=== PATIENT | male | born 1990 | race Caucasian/White ===

== ENCOUNTER 2022-10-30 07:59 | Emergency (ER) | payer BC, SELFPAY ==
[2022-10-30 08:00] VITALS: BP 121/84; PULSE 96; RESP 14; TEMP 36.5; O2SAT 97; BMI 17.6
--- NOTE | 2022-10-30 08:31 | EKG12_ITS ---
Test Reason : CP FOR MONTHS Blood Pressure : / mmHG Vent. Rate : 080 BPM Atrial Rate : 080 BPM P-R Int : 196 ms QRS Dur : 106 ms QT Int : 370 ms P-R-T Axes : 077 125 072 degrees QTc Int : 426 ms Normal sinus rhythm Right axis deviation Incomplete right bundle branch block Anterior infarct , age undetermined Abnormal ECG Confirmed by THAD GRAHAM, BONNIE ([id number]), general expeditor SANTIAGO ABURTO ([id number]) on 11/03/2022 8:17:29 AM Referred By: KAVON Confirmed By:CHRISTIANO ONEIL MD
--- NOTE | 2022-10-30 08:31 | RAD_ITS ---
STUDY: X-RAY CHEST REASON FOR EXAM: Male, 32 years old. Chest pain TECHNIQUE: Single AP portable view of the chest. COMPARISON: None. FINDINGS: EKG electrodes are seen. The lungs are clear and expanded. There is no demonstrated pleural abnormality. Normal size heart. Normal mediastinum and ana. Normal visualized pulmonary arteries. Normal visualized aortic arch and descending thoracic aorta. Normal visualized thoracic spine. Normal visualized ribs, clavicles, and shoulders. There is no demonstrated abnormality of the visualized soft tissue structures of the upper abdomen. RAD/Chest 1 View (Portable) IMPRESSION: Normal x-ray examination of the chest. Electronically Signed: Boni Araiza MD at 9:29 EDT ,
[2022-10-30 08:33] VITALS: BP 110/77; PULSE 72; RESP 19; O2SAT 96; O2SAT 98
[2022-10-30] MEDS: Aspirin 81 MG TAB.CHEW 324 MG PO (08:37)
[2022-10-30 08:43] LABS: Absolute Lymphocyte Count 1.13 X10^3/uL (0.83-4.51); Absolute Neutrophil Count 3.2 X10^3/uL (2.0-7.7); Basophil# 0.04 X10^3/uL; Basophil% 0.8 % (0-1); Eosinophil# 0.13 X10^3/uL; Eosinophils% 2.7 % (0-5); Hematocrit 45.5 % (40-54); Hemoglobin 14.9 g/dL (13.0-16.5); Lymphocyte # 1.13 X10^3/ul (0.83-4.51); Lymphocyte % 23.1 % (19-41); Mean Corp Hgb Conc 32.7 g/dL (32-36); Mean Corpuscular Hgb 30.1 pg (27.0-32.0); Mean Corpuscular Volume 91.9 fL (80-94); Mean Platelet Vol. 9.1 fl (6.2-12.0); Monocyte# 0.34 X10^3/uL; Monocyte% 6.9 % (0-10); NRBC Flagged by Analyzer 0 % (0-5); Neutrophil # 3.22 X10^3/uL (2.7-7.7); Neutrophil % 65.7 % (47-70); Platelet Count 238 K/mm3 (150-450); RBC Distribution Width CV 12.7 % (11.6-14.6); RBC Distribution Width SD 42.4 fl (35.1-43.9); Red Blood Count 4.95 M/mm3 (4.6-6.2); White Blood Count 4.9 K/mm3 (4.4-11.0)
[2022-10-30 09:02] LABS: Anion Gap 6 (5-15); BUN 15 mg/dL (7-18); BUN/Creat Ratio 16.5 RATIO (10-20); Calcium,Total 8.9 mg/dL (8.5-10.1); Chloride 106 mmol/L (98-107); Creatinine, Serum 0.91 mg/dL (0.70-1.30); EST Glomerular Filtration Rate 104 mL/min (>60); Est Glom Filt Rate - Afr Amer 125 mL/min (>60); Estimated Creatinine Clearance 96.71 ml/min; Glucose 94 mg/dL (74-106); Potassium 4.2 mmol/L (3.5-5.1); Sodium Level 139 mmol/L (136-145); Troponin-I HS < 3 pg/mL (3.0-78.0)
--- NOTE | 2022-10-30 10:09 | ED.VIS.CHEST ---
HPI History of Present Illness Chief Complaint: Chest Pain Informant: patient Onset/Context/Timing Onset: Yesterday Activity at onset: gradual Timing: Intermittent and Lasts (Approximately 10 minutes) Quality: Positive for Tightness Location: Left Chest Worsened By: Nothing Relieved By: Nothing Associated Symptoms: Positive for Nausea, Dyspnea, Acid Reflux and Palpitations; Negative for Vomiting, Diaphoresis, Cough, Fever or Lightheadedness Narrative Narrative: Patient presents with chest pain that has been intermittent for months but became worse yesterday. Patient states that it last for approximately 10 minutes when it comes on. Patient states nothing seems to help with the pain. Patient states nothing makes it worse. Patient states it is over the left side of his chest. Patient denies any radiation of the pain. Patient admits to some nausea but denies any vomiting. Patient admits to some shortness of breath. Patient also admits to some palpitations and acid reflux symptoms. Patient is a smoker but denies any other cardiac or PE risk factors. CVD Risk Factors: Positive for Smoking; Negative for Hypertension, Diabetes, Hypercholesterolemia or Family History 1' </=55 PE Risk Factors: Negative for Recent Travel/Surgery, Recent Immobilization, Prior DVT or PE, Cancer or OCP + Smoking + >/=35 PFSH PFSH Medical History no medical history no medical history Allergy/AdvReac Type Severity Reaction Status Date / Time No Known Allergies Allergy Verified 10/30/22 08:01 Surgical History History of renal stent Social History Smoking Status: Current every day smoker tobacco type: cigarettes ROS ROS ED Constitutional Constitutional ED: Denies chills or fever(s) Eyes Eyes: Denies blurry vision or change in vision ENT ENT ED: Reports sore throat; Denies rhinorrhea Cardiovascular Cardiovascular: Reports chest pain and palpitations Respiratory/Chest Respiratory/Chest: Reports dyspnea; Denies cough Gastrointestinal Gastrointestinal: Reports nausea; Denies abdominal pain or vomiting Genitourinary Genitourinary ED: Denies dysuria or hematuria Musculoskeletal Musculoskeletal: Reports back pain; Denies neck pain Integumentary Denies abscess or rash Neurologic Neurologic: Reports headache(s); Denies weakness Allergic/Immunologic Allergic/Immunologic ED: Denies mouth swelling or urticaria EXAM Physical Exam Const Vital Signs: 10/30/22 08:00 10/30/22 08:33 10/30/22 08:33 Temperature 97.7 F L Temperature Source Temporal Pulse Rate 96 72 Respiratory Rate 14 19 H Blood Pressure 121/84 H 110/77 Blood Pressure Mean 96 88 Pulse Ox 97 98 96 Oxygen Delivery Method Room Air Room Air Room Air Positive well nourished and well developed General Appearance ED: well developed and NAD HEENT Reports moist mucous membranes Neck supple and no JVD Resp normal respiratory effort and clear to auscultation bilaterally Cardio regular rate, regular rhythm and no murmurs GI normal to inspection, nondistended, normoactive bowel sounds and non-tender Palpation: soft Extremity normal to inspection General Extremety ED: Negative for edema or tenderness General Extremity: Negative for edema Neuro oriented x3, CN's II-XII intact bilaterally and no sensory deficits noted Sensorium / Orientation: alert Motor Exam: strength 5/5 throughout Psych mental status grossly normal Skin no rashes or lesions noted Heart Score History: Slightly/Non-Suspicious ECG: Normal Age: </= 45 years Risk Factors: 1 or 2 Risk Factors Troponin: </= Normal Limit Score: 1 MDM MDM MDM Narrative Medical decision making narrative: Differential diagnose includes cardiac dysrhythmia, cardiac ischemia, pneumonia, pneumothorax, musculoskeletal pain and anxiety. EKG will be obtained to assess for cardiac dysrhythmia and cardiac ischemia. CBC will be obtained to assess for leukocytosis and anemia. Basic metabolic profile will be obtained to assess for electrolyte abnormality and renal function. High-sensitivity troponin will be obtained to assess for cardiac ischemia. Chest x-ray will be obtained to assess for pneumonia and pneumothorax. Patient has no PE risk factors, is PERC negative, and has a Wells score of 0. Because of this, I do not feel this is from a pulmonary embolism. Lab Data Attestation: I reviewed the patient's lab results. Lab results narrative: CBC was reviewed and was within normal limits. Basic metabolic profile was reviewed and was within normal limits. High-sensitivity troponin was reviewed and was less than 3. Labs: Laboratory Results - last 24 hr 10/30/22 08:37 WBC 4.9 RBC 4.95 Hgb 14.9 Hct 45.5 MCV 91.9 MCH 30.1 MCHC 32.7 RDW Std Deviation 42.4 RDW Coeff of Dana 12.7 Plt Count 238 MPV 9.1 Immature Gran % (Auto) 0.800 Neut % (Auto) 65.7 Lymph % (Auto) 23.1 [place] % (Auto) 6.9 Eos % (Auto) 2.7 Baso % (Auto) 0.8 Absolute Neuts (auto) 3.2 Absolute Lymphs (auto) 1.13 Nucleated RBC % 0 Sodium 139 Potassium 4.2 Chloride 106 Carbon Dioxide 27.0 Anion Gap 6 BUN 15 Creatinine 0.91 Estim Creat Clear Calc 96.71 Est GFR (MDRD) Af Amer 125 Est GFR (MDRD) Non-Af 104 BUN/Creatinine Ratio 16.5 Glucose 94 Calcium 8.9 Troponin I High Sens < 3 L Radiography Chest X-Ray - ED: 1 View, Read by ED Physician, Read by Radiologist and No Acute Disease Diagnostic Testing: Clinical Impression(s) from Imaging Studies Chest X-Ray 10/30/22 08:31 IMPRESSION: Normal x-ray examination of the chest. Electronically Signed: Boni Araiza MD at 9:29 EDT , Portable 1 view chest x-ray was obtained. On my independent interpretation, lung daniels are clear. There is normal cardiac silhouette. Bony thorax is normal. There is no acute process noted. Radiologist also interpreted the x-ray and agrees. EKG Initial EKG: Attestation: I personally reviewed and interpreted this EKG as follows: Interpretation: Sinus Rhythm (80) and No Acute Injury Pattern Comments: EKG was obtained. On my independent interpretation, it showed a normal sinus rhythm with a rate of 80. FL interval, QRS interval, and QTc intervals were all normal. There is right axis deviation at 125. There are no acute ST or T wave changes. Prior EKG tracings: not available for review Prior: No Prior Treatment and Re-Evaluation :: Patient was given aspirin here. Patient was advised of his findings. Patient has a HEART score of 1. Patient was advised that this is low risk for acute cardiac event. Patient was instructed to follow-up with his primary care physician in 5 to 7 days for further evaluation. Patient understood and was agreeable with the plan. All questions were answered. Discharge Plan Triage Chief Complaint: Chest Pain ED Provider: Miguel Santiago Dx/Rx/DC Orders Clinical Impression: Chest pain Instructions: ED Chest Pain, Uncertain Cause Primary Care Provider: Care Physician,No Primary Referrals: Karlene Virk DO [Med Staff - Active Staff] - 5-7 Days Care Physician,No Primary [Primary Care Provider] - Disposition Disposition: Home, Self Care
== END 2022-10-30 10:31 | disposition home or self-care (01) ==
PROVIDERS: Emergency Provider Emergency Medicine; Visit Provider Emergency Medicine
DX: R07.9 Chest pain, unspecified (principal); F17.210 Nicotine dependence, cigarettes, uncomplicated
CPT/HCPCS: 71045; 80048; 84484; 85025; 93005; 99285; A4216

== ENCOUNTER → 2023-10-22 | Outpatient (CLI) | payer BC, SELFPAY ==
[2023-10-22 17:21] LABS: Absolute Lymphocyte Count 1.61 X10^3/uL (0.83-4.51); Basophil# 0.05 X10^3/uL; Eosinophil# 0.16 X10^3/uL; Eosinophils% 3.1 % (0-5); Hematocrit 42.2 % (40-54); Hemoglobin 14.2 g/dL (13.0-16.5); Lymphocyte # 1.61 X10^3/ul (0.83-4.51); Lymphocyte % 30.8 % (19-41); Mean Corp Hgb Conc 33.6 g/dL (32-36); Mean Platelet Vol. 9.4 fl (6.2-12.0); Monocyte# 0.37 X10^3/uL; Monocyte% 7.1 % (0-10); NRBC Flagged by Analyzer 0 % (0-5); Neutrophil # 3.02 X10^3/uL (2.7-7.7); Neutrophil % 57.6 % (47-70); Platelet Count 229 K/mm3 (150-450); RBC Distribution Width CV 12.1 % (11.6-14.6); RBC Distribution Width SD 39.7 fl (35.1-43.9); Red Blood Count 4.74 M/mm3 (4.6-6.2); White Blood Count 5.2 K/mm3 (4.4-11.0)
[2023-10-22 17:54] LABS: ALB/GLOB Ratio 1.4 RATIO (0.9-2.4); AST(SGOT) 23 U/L (15-37); Alanine Aminotransfer ALT/SGPT 23 U/L (16-61); Albumin, Serum 4.3 g/dL (3.2-5.0); Alkaline Phosphatase 64 U/L (45-117); Anion Gap 7 (5-15); BUN 19 mg/dL (7-18); BUN/Creat Ratio 16.7 RATIO (10-20); Calcium,Total 8.9 mg/dL (8.5-10.1); Chloride 106 mmol/L (98-107); Creatinine, Serum 1.14 mg/dL (0.70-1.30); EST Glomerular Filtration Rate 79 mL/min (>60); Est Glom Filt Rate - Afr Amer 96 mL/min (>60); Globulin 3.1 g/dL (2.2-4.2); Glucose 97 mg/dL (74-106); Protein, Total 7.4 g/dL (6.4-8.2); Sodium Level 138 mmol/L (136-145); Thyroid Stim Hormone (TSH) 0.91 uIU/mL (0.358-3.74)
== END | disposition home or self-care (01) ==
LOC: VSLAB 15:23
PROVIDERS: Visit Provider Nurse Practitioner Family
DX: Z01.812 Encounter for preprocedural laboratory examination (principal); K02.9 Dental caries, unspecified
CPT/HCPCS: 36415; 80053; 84443; 85025

== ENCOUNTER → 2023-11-03 | Outpatient (CLI) | payer BC, SELFPAY ==
--- NOTE | 2023-11-03 13:54 | EKG12_ITS ---
Test Reason : PREOP Blood Pressure : / mmHG Vent. Rate : 071 BPM Atrial Rate : 071 BPM P-R Int : 202 ms QRS Dur : 106 ms QT Int : 384 ms P-R-T Axes : 077 121 076 degrees QTc Int : 417 ms Normal sinus rhythm Anterolateral infarct (cited on or before 30-OCT-2022) Abnormal ECG Confirmed by OZ GRAHAM, AGUSTINA ([id number]), editor dictionary SANTIAGO ABURTO ([id number]) on 11/04/2023 9:37:25 AM Referred By: Sherman Macdonald Confirmed By:AGUSTINA CLINTON MD
== END | disposition home or self-care (01) ==
LOC: PSN 13:53
PROVIDERS: Referring Provider Nurse Practitioner Family; Visit Provider Nurse Practitioner Family
DX: Z01.812 Encounter for preprocedural laboratory examination (principal)
CPT/HCPCS: 93005

== ENCOUNTER → 2024-01-12 | Outpatient (CLI) | payer BC, SELFPAY ==
--- NOTE | 2024-01-12 14:58 | ECHOD_ITS ---
Reason For Study: MITRAL VALVE PROLAPSE Procedure This was a 2D Doppler, Color Flow transthoracic echocardiogram. The study was technically difficult. Exam performed in department. Left Ventricle Normal LV size. Left ventricular systolic function is normal. The left ventricular ejection fraction is 60 %. No regional wall motion abnormalities noted. Right Ventricle Normal RV size. Normal systolic function. Atria Normal left atrium. Normal right atrium. Mitral Valve Normal mitral valve. Tricuspid Valve Normal tricuspid valve. Trivial tricuspid valve insufficiency. Pulmonary artery systolic pressure is 19 mmHg. Aortic Valve Trisinus/trileaflet aortic valve. Pulmonic Valve Normal pulmonic valve. Great Vessels Normal aortic root. The pulmonary artery is normal size. Inferior vena cava collapse with respiration. Pericardium/Pleural No pericardial effusion. MMode/2D Measurements & Calculations LVIDd: 4.2 cm IVSd: 0.76 cm LVOT diam: 1.9 cm LVIDs: 2.8 cm LVPWd: 0.88 cm LVOT area: 2.9 cm2 RVDd: 2.8 cm FS: 33.6 % LAV(MOD-sp4): 27.2 ml LVAd ap4: 22.6 cm2 LVAd ap2: 24.5 cm2 LVLd ap4: 7.1 cm LVLd ap2: 7.2 cm EDV(MOD-sp4): 61.3 ml EDV(MOD-sp2): 69.0 ml EDV(sp4-el): 61.3 ml EDV(sp2-el): 70.8 ml LVAs ap4: 13.5 cm2 LVAs ap2: 13.9 cm2 LVLs ap4: 6.3 cm LVLs ap2: 6.0 cm ESV(MOD-sp4): 24.0 ml ESV(MOD-sp2): 25.8 ml ESV(sp4-el): 24.4 ml ESV(sp2-el): 27.2 ml EF(MOD-sp4): 60.9 % EF(MOD-sp2): 62.6 % EF(sp4-el): 60.2 % SV(MOD-sp4): 37.3 ml SV(MOD-sp2): 43.1 ml SV(sp4-el): 36.9 ml Ao sinus diam: 3.[address] Junction: 2.6 cm LA A4 area: 13.3 cm2 LA dimension(2D): 2.3 cm RA A4 area: 8.5 cm2 Time Measurements MV dec time: 0.23 sec Doppler Measurements & Calculations MV E max hilton: 78.0 cm/sec Lat Peak E' Hilton: 11.0 cm/sec Med Peak E' Hilton: 11.6 cm/sec MV A max hilton: 51.2 cm/sec E/E' lat: 7.1 E/E' med: 6.7 MV E/A: 1.5 Ao V2 max: 109.4 cm/sec LV V1 max: 90.9 cm/sec MV dec slope: 334.7 cm/sec2 Ao max P.8 mmHg LV V1 max P.3 mmHg Ao V2 mean: 82.0 cm/sec LV V1 mean P.8 mmHg Ao mean P.9 mmHg LV V1 mean: 60.3 cm/sec Ao V2 VTI: 21.3 cm LV V1 VTI: 16.7 cm AV (velocity ratio): 0.78 SYED(I,D): 2.3 cm2 SYED(V,D): 2.4 cm2 SV(LVOT): 48.2 ml PA V2 max: 83.2 cm/sec PI end-d hilton: 97.0 cm/sec PA max PG (full): 0.28 mmHg TR max hilton: 198.9 cm/sec TR max P.8 mmHg ECHO/Echo Complete Interpretation Summary Normal LV size. Left ventricular systolic function is normal. The left ventricular ejection fraction is 60 %. Normal mitral valve. Ordering Physician: Antoni Miller Referring Physician: Antoni Miller MD Performed By: Tracie Madrigal, RDCS
== END | disposition home or self-care (01) ==
LOC: CVS 14:56
PROVIDERS: Referring Provider Internal Medicine Cardiovascular Disease; Visit Provider Internal Medicine Cardiovascular Disease
DX: R07.9 Chest pain, unspecified (principal); I34.1 Nonrheumatic mitral (valve) prolapse
CPT/HCPCS: 93306

== ENCOUNTER → 2024-02-05 | Outpatient (CLI) | payer BC, SELFPAY ==
[2024-02-05 15:49] LABS: Bacteria 0 SEEN /hpf (None Seen); Mucous, Urine 0 SEEN /hpf (<or=2+); Squamous Epithelial Cells - UA 0 SEEN /hpf (0-5); White Blood Cells 0 SEEN /hpf (0-5)
[2024-02-05 17:39] LABS: Color, Urine Straw (Yellow); Glucose, Dipstick Normal (Normal); Ketone-Dipstick Negative (Negative); Leukocyte Esterase-Dipstick Negative /ul (Negative); Nitrite-Dipstick Negative (Negative); Occult Blood-Urine 50 /ul (Negative); Protein-Dipstick Negative (Negative); Urine Bilirubin Dipstick Negative (Negative); Urine Clarity Clear (Clear); Urine Urobilinogen Normal (Normal)
[2024-02-05 17:48] LABS: Red Blood Cells-Urine 25-50 SEEN /hpf (0-5)
== END | disposition home or self-care (01) ==
PROVIDERS: Referring Provider Physician Assistant Surgical; Visit Provider Physician Assistant Surgical
DX: R30.0 Dysuria (principal); K12.0 Recurrent oral aphthae
CPT/HCPCS: 36415; 81001; 86695; 86696; 87086; 87491; 87591